=== PATIENT | female | born 1950 | race Caucasian/White ===

== ENCOUNTER → 2019-02-17 | Outpatient (CLI) | payer OTHER ==
[~2019-02-17] MED LIST: ALPRAZOLAM1 MG PO; ASPIRINA; INTESTINEX1 CA1 PO; LIPITOR; LISINOPRIL5 MG PO; METFORMIN HCL500 M1; METFORMIN HCL500 M1 PO; Neurin-Sl Tablet Sl SL; PROTONIX40 MG PO; PYRIDOXINE HCL100 MG PO; VANCOCIN ORAL SUSP. PO; WELLBUTRIN XL300 MG; WELLBUTRIN XL300 MG PO; ZESTRIL5 MG PO
== END | disposition home or self-care (01) ==
LOC: MRI 10:12
DX: B33.20 Viral carditis, unspecified (principal)
CPT/HCPCS: 70551

== ENCOUNTER 2020-08-18 10:58 | Outpatient (CLI) | payer OTHER | END 2020-08-18 11:00 | disposition home or self-care (01) | LOC: MRI 10:58 | DX: N18.3 Chronic kidney disease, stage 3 (moderate) (principal) | CPT/HCPCS: 74181 ==

== ENCOUNTER 2022-05-19 07:45 | Inpatient (IN) | payer OTHER ==
[~2022-05-19] VITALS: Ht 160 cm; Wt 74.8 kg
[2022-05-23] MEDS ORDERED: DORZOLAMIDE HCL10 ML (08:45)
[2022-05-23] MEDS ORDERED: ESTAZOLAM2 MG (08:45)
[2022-05-23] MEDS ORDERED: TIMOLOL MALEATE5 M4 (08:46)
[2022-05-23] MEDS ORDERED: NORFLEX100MG (08:46)
[2022-05-23] MEDS ORDERED: DEXAMETHASONE4 MG (08:46)
[2022-05-23] MEDS ORDERED: XARELTO10 M1 (08:46)
[2022-05-23] MEDS ORDERED: GABAPENTIN300 M2 (08:46)
[2022-05-23] MEDS ORDERED: FUSION PLUS CA1 EACH (08:46)
[2022-05-23] MEDS ORDERED: SUCRALFATE1 GM (08:47)
[2022-05-23] MEDS ORDERED: ROSUVASTATIN CA10 MG (08:47)
[2022-05-23] MEDS ORDERED: ECOTRIN81 MG (08:48)
[2022-05-23] MEDS ORDERED: ATORVASTATIN CA10 MG (08:48)
[2022-05-23] MEDS ORDERED: ABANEU-SL TABL1 EACH (08:49)
[2022-05-26] MEDS ORDERED: NORFLEX100MG PO (12:33)
[2022-05-26] MEDS ORDERED: PERCOCET 5-3251 EACH PO (12:33)
[2022-05-26] MEDS ORDERED: GABAPENTIN100 MG PO (12:33)
[2022-05-26] MEDS ORDERED: XARELTO10 MG PO (12:33)
== END 2022-05-26 16:57 | disposition home or self-care (01) | DRG 470 ==
LOC: O/R 05-23 06:12 → SURG 05-23 06:12 → SURH 05-23 06:30 → SURG 05-23 11:51
PROVIDERS: ADMIT Orthopaedic Surgery; ATTEND Orthopaedic Surgery
PROC: 0SRC0J9 Replacement of Right Knee Joint with Synthetic Substitute, Cemented, Open Approach (ICD-10-PCS; principal; 2022-05-23 06:30)
DX: M17.11 Unilateral primary osteoarthritis, right knee (principal); M85.661 Other cyst of bone, right lower leg; I10 Essential (primary) hypertension